=== PATIENT | female | born 1955 | race Caucasian/White ===

== ENCOUNTER 2018-04-22 10:36 | Outpatient (CLI) | payer BC | END 2018-04-22 10:37 | disposition home or self-care (01) | LOC: BICMAMMO 10:36 | PROVIDERS: ATTEND Family Medicine | DX: Z12.31 Encounter for screening mammogram for malignant neoplasm of breast (principal); Z13.820 Encounter for screening for osteoporosis | CPT/HCPCS: 77063; 77067; 77080 ==

== ENCOUNTER 2022-06-19 08:43 | Outpatient (CLI) | payer MEDICARE, OTHER | END 2022-06-19 08:44 | disposition home or self-care (01) | LOC: BICMAMMO 08:43 | PROVIDERS: ATTEND Family Medicine | DX: Z12.31 Encounter for screening mammogram for malignant neoplasm of breast (principal) | CPT/HCPCS: 77063; 77067 ==